=== PATIENT | female | born 1960 | race Caucasian/White ===

== ENCOUNTER 2016-08-21 20:33 | Observation (INO) | payer BC ==
--- NOTE | ~2016-08-21 | DS ---
Discharge Summary [facility] [address] [place]. [address] NAME: MING MA : 62 STATUS : DIS Papo PAT#: [id number] AGE: 55 ADM/REG DATE : 08/21/16 MR#: [id number] REPORT SERV DATE: 08/24/16 DICTATED BY: ENEIDA REAVES DATE: 08/23/16 REPORT STATUS : Draft TRANSCRIBED BY: DANDY DATE: 08/23/16 ADMISSION DATE: 08/21/2016 DISCHARGE DATE: 08/23/2016 DISCHARGE DIAGNOSES: 1. Chest pain, resolved. 2. Anxiety disorder. 3. Acute bronchitis. 4. Major depression. 5. Hyperlipidemia. 6. Cervical spine degenerative joint disease. 7. Tobacco abuse. DISCHARGE CONDITION: Stable. INVASIVE PROCEDURE: None. SIGNIFICANT IMAGING: Stress test, impression: 1. Alden's stage III, achieved 85% MPHR at 10 METS. 2. No angina or chest pain. 3. No EKG changes of ischemia. 4. Imaging demonstrated no ischemia as below. Post exercise left ventricular ejection fraction greater than 60%. Overall, low risk stress test. HISTORY OF PRESENT ILLNESS: For detailed HPI, please make reference to Dr. Jose Roberto Yu's dictation on 08/22/2016. In brief, this is a 55-year-old female with medical history significant for hypertension, tobacco abuse, anxiety disorder, major depression, who was transferred from [facility] Emergency Department to [facility] with complaints of chest pain and anxiety disorder. The patient endorsed history of intermittent chest pain of two days' duration, chest pain started initially on exertion, but continued to progress and also occurred at rest. There was no associated palpitation, presyncope or syncopal episodes, diaphoresis, or dyspnea. Of note, the patient reported that the episode of chest pain was precipitated by significant emotional stress due to multiple family problems. The patient believes that the chest pain was precipitated by a panic attack episode and worsening of anxiety disorder. She reported her continued to have significant alcohol abuse and severe major depression and her son also was abusing drugs. Due to this emotional stress of handling the psychiatry problem of and her son, she continued to have worsening anxiety attacks and chest pain. At [facility], she had troponin that was less than 0.02 x2. EKG that was negative for acute ST changes. The patient was transferred to [facility] for further evaluation of chest pain. HOSPITAL COURSE: 1. Chest pain. The patient received nitroglycerin x2 without any significant improvement. Received morphine x1 with resolution of chest pain. The patient subsequently underwent a stress test and final impression was low risk for ischemic cardiac disease. At the time of discharge, the patient had no further episode of chest pain. No shortness of Discharge Summary [place] [id number] [facility] [place]. [address] NAME: MING MA : 62 STATUS : DIS Papo PAT#: [id number] AGE: 55 ADM/REG DATE : 08/21/16 MR#: [id number] REPORT SERV DATE: 08/24/16 DICTATED BY: ENEIDA REAVES DATE: 08/23/16 REPORT STATUS : Draft TRANSCRIBED BY: DANDY DATE: 08/23/16 breath. The patient was advised to follow up with primary care physician as an outpatient. 2. Anxiety disorder. Precipitated by emotional stress at home. Although the patient reports that her has significant alcohol problem and few alcohol disorder and major depression. The patient reports that at the time of discharge, that she will not go back home with her , rather she will go and stay with dad. The patient also declined psychiatry evaluation during the course of this admission. She denied suicidal or homicidal ideation during this admission. The patient decided that she would rather follow up with primary psychiatrist as an outpatient. Prior to discharge, an appointment was made with her primary psychiatrist for patient to follow. 3. Tobacco abuse. The patient was counseled on tobacco cessation, was placed on nicotine patch during this course of admission. The patient agreed to abstain from tobacco use. The patient will be discharged home with nicotine patch. 4. Acute bronchitis. The patient was on Medrol Marcellus and Keflex prior to presentation. During the course of this admission, chest x-ray shows no evidence of pneumonia. The patient was prescribed Tessalon Perles with significant improvement. The patient did not receive any further dose of steroids during this admission. The patient was advised to continue follow up with her primary care physician. DISCHARGE MEDICATIONS: 1. Aspirin 81 mg p.o. daily. 2. Tessalon Perles 200 mg p.o. t.i.d. 3. Nicotine patch 21 mg p.o. daily. 4. Protonix 40 mg p.o. daily. 5. Propranolol 80 mg p.o. daily. 6. Clonazepam 2 mg p.o. b.i.d. 7. Trazodone 200 mg p.o. at bedtime. 8. Effexor XR 150 mg p.o. daily. DISCHARGE CONDITION: Stable. DISCHARGE DISPOSITION: Home. Greater than 30 minutes was used to prepare this patient's discharge. Advised the patient on discharge plans and followup. FOLLOWUP PLANS: 1. Follow up with primary psychiatrist within one week of discharge. 2. Follow up with primary care physician within one week of discharge. DISCHARGE ACTIVITY: As tolerated. DICTATED BY: Eneida Reaves MD IOO/DANDY Discharge Summary [address] [address] NAME: MNIG MA : 62 STATUS : DIS Papo PAT#: [id number] AGE: 55 ADM/REG DATE : 08/21/16 MR#: [id number] REPORT SERV DATE: 08/24/16 DICTATED BY: ENEIDA REAVES DATE: 08/23/16 REPORT STATUS : Draft TRANSCRIBED BY: DANDY DATE: 08/23/16 Eneida Reaves MD / [id number] CC: MD Alonzo Boateng M.D.
--- NOTE | ~2016-08-21 | HP ---
History And Physical [place] [id number] [facility] [place]. [address] NAME: MILA KOCH : 62 STATUS : ADM Papo PAT#: [id number] AGE: 55 ADM/REG DATE : 08/21/16 MR#: [id number] REPORT SERV DATE: 08/22/16 DICTATED BY: DATE: REPORT STATUS : Draft TRANSCRIBED BY: MODL DATE: 08/21/16 DATE OF ADMISSION: 08/21/2016 CHIEF COMPLAINT: Chest pain, anxiety. HISTORY OF PRESENT ILLNESS: Ms. Mila Koch is a 55-year-old white female with minimal past medical history, but several cardiovascular risk factors, who transferred from [facility] Emergency Department with chief complaint of chest pain earlier today with some associated shortness of breath and palpitations. She states that she has been experiencing intermittent chest pain off and on for two days with exertion and at rest. The chest pain was initially precipitated by emotional stress due to multiple family problems to be outlined below. She believes that her symptoms are likely related to a panic attack, but does have several cardiovascular risk factors and initially reported a family history of early coronary artery disease in her father at the age of 55 (since then has reported it was not until he was in his 70s). Troponin was negative and EKG at the outside facility showed an incomplete right bundle- branch block, which has been present since at least 2012 by review of our records. She received morphine, aspirin, and nitroglycerin prior to transfer and is currently chest pain free. She is primarily preoccupied with her stressful family situation and difficulties coping with her anxiety, and is seeking inpatient psychiatric hospitalization at [place] after "medical clearance." The patient is in a strained marriage with her of 36 years, who abuses alcohol. They temporarily one month ago, but had subsequently got back together, although it is a difficult situation still for the patient. She has two sons, who both struggle with addiction issues. Her father has been ill recently, and she is raising a 7-year-old granddaughter. She states "the weight of the world is on me and I just can't handle it." She sees Pillo Kim, nurse practitioner, at [facility], but has not called their office recently to discuss, and has not had any recent changes in her maintenance medications of Effexor and Klonopin. She denies any physical abuse, although does state that the home can be verbally abusive. She denies any suicidal ideation or homicidal ideation. She has had increasing compulsive-type behaviors and irritability recently, and she has some symptoms of hyper alertness - believing that she may see things that are not there, hear things that others cannot hear, and has a sense of "spirits" around her influencing these negative circumstances in her life currently. Her has accused her of being "crazy." REVIEW OF SYSTEMS: On 14-point review of systems, the patient endorses recent 35-pound weight loss over the past year. She states that the stress has impacted her appetite. She also has frequent insomnia, decreased interest in things that used to make her happy, a sense of emptiness, decreased concentration, increased psychomotor agitation. and some patchy hair loss. She recently saw her primary care provider for a physical on 08/05/2016, and was diagnosed with History And Physical [address] [address] NAME: MILA KOCH : 62 STATUS : ADM Papo PAT#: [id number] AGE: 55 ADM/REG DATE : 08/21/16 MR#: [id number] REPORT SERV DATE: 08/22/16 DICTATED BY: DATE: REPORT STATUS : Draft TRANSCRIBED BY: DANDY DATE: 08/21/16 mild emphysema and atelectasis. She was placed on treatment for bronchitis and recently completed a 10-day course of Keflex and a Medrol Dosepak. She reports that she has some ongoing cough and shortness of breath since then with some chest tightness and wheezing, but no phlegm production. A full 14-point review of systems is otherwise negative except as dictated in the history of present illness. PAST MEDICAL HISTORY: Includes: 1. Hypertension. 2. Hyperlipidemia. 3. Anxiety. 4. Depression. 5. Cervical spine degenerative disk disease. PAST SURGICAL HISTORY: Includes surgical correction of cervical spondylosis in 2013 and a hysterectomy. ALLERGIES: FLOXIN CAUSES VOMITING, BUT THE PATIENT CAN SUCCESSFULLY TAKE OTHER FLUOROQUINOLONES. HOME MEDICATIONS: By patient's memory include propranolol, Effexor, estradiol, trazodone, Klonopin, Protonix, and Crestor. SOCIAL HISTORY: The patient is , and a strained marriage as above. She has three children with issues as above. She does smoke one and a half packs per day for at least 25 years. She denies use of any alcohol or illicit substances. FAMILY HISTORY: Pertinent for coronary artery disease in her father, diagnosed in his 70s. Also, metastatic melanoma and dementia in her mother, who is from melanoma. PHYSICAL EXAMINATION: VITAL SIGNS: Blood pressure 140/83, pulse 64, respirations 16, oxygen saturations 98% on room, and temperature is 98.2. GENERAL: This is a thin white female, in no acute distress. She is anxious appearing, sometimes tearful in describing her family situation. HEENT: Normocephalic, atraumatic. Pupils are equally round and reactive to light. No alopecia. No sinus tenderness to palpation or nasal drainage. Oropharynx moist and pink with no posterior pharyngeal erythema or exudate. NECK: Supple. No jugular venous distention. No lymphadenopathy. No bruits. CARDIOVASCULAR: Regular rate and rhythm with no murmurs, rubs, or gallops. LUNGS: Faint end-expiratory wheezing, but no rhonchi or crackles. Good air entry to the bases. ABDOMEN: Soft, nontender, and nondistended with normoactive bowel sounds in four quadrants and no hepatosplenomegaly. EXTREMITIES: No cyanosis, clubbing, or edema. SKIN: Normal skin turgor with no rash or skin breakdown. NEUROLOGIC: Cranial nerves 2 through 12 were tested and are intact. Deep tendon reflexes 2+ bilateral brachioradialis and patellar tendons. Sensation intact to fine touch and History And Physical [address] [address] NAME: MILA KOCH : 62 STATUS : ADM Papo PAT#: [id number] AGE: 55 ADM/REG DATE : 08/21/16 MR#: [id number] REPORT SERV DATE: 08/22/16 DICTATED BY: DATE: REPORT STATUS : Draft TRANSCRIBED BY: MODL DATE: 08/21/16 temperature in all four limbs and strength is 5/5 bilateral upper and lower extremities. Patient ambulates without difficulty. LABORATORY DATA: Outside emergency department labs were reviewed, pertinent for creatinine 0.7, glucose 111, calcium 9.1, magnesium 1.9. Troponin less than 0.02. INR 1.1. White blood cell count 14.2, hemoglobin 14.1, hematocrit 42, platelets 381. Urine drug screen is negative. Salicylate level negative. Alcohol level negative. Urinalysis negative for infection. IMAGING: A portable chest x-ray done at the outside facility shows hyper aerated lungs with peribronchial thickening suggesting reactive airways disease. EKG shows incomplete right bundle-branch block, compared to EKG in the system from 2013 here showing RSR prime variant. Labs in our system were reviewed as well with a normal TSH on 08/05/2016, total cholesterol 165 with HDL 54, LDL 94, and triglycerides 88. IMPRESSION: 1. Atypical chest pain - suspect due to anxiety, with cardiovascular risk factors, we will rule out cardiac etiologies. 2. Leukocytosis - suspect steroid induced given recent Medrol Dosepak. 3. History of incomplete right bundle-branch block. 4. History of hypertension. 5. History of hyperlipidemia. 6. History of tobacco abuse. 7. Mild emphysema. 8. Depression and anxiety with recently increased psychological stress, and possible hyperarousal versus psychotic features. PLAN: 1. Observation admission to [address] [place] [address], [address] Eneida Adamson. 2. Serial cardiac enzymes and EKGs with a stress test if troponin is negative x2. 3. P.r.n. morphine, p.r.n. oxygen, p.r.n. nitrates, aspirin, continuation of home beta- schuyler. 4. Repeat CBC in the morning - no present indication for antibiotics given clinical exam findings and lack of infiltrate on chest x-ray as well as no significant change in sputum. Suspect that the cough is more related to chronic smoker's cough than acute infection, and we will attempt to optimize the patient's breathing treatments with use of an inhaled steroids, long-acting beta agonist, and we will add Spiriva as well. 5. Continue home psychiatric medications and utilize p.r.n. Ativan. 6. Check B12, sedimentation rate, ammonia, [place], and a CT of the brain regarding possible visual hallucinations, but again, think this may be related to her uncontrolled anxiety. 7. Pending results of above workup, consider voluntary inpatient psychiatric hospitalization at [facility] after discussing with her psychiatric nurse practitioner when the office is open on Tuesday. History And Physical [address] [place]. [address] NAME: MILA KOCH : 62 STATUS : ADM Papo PAT#: [id number] AGE: 55 ADM/REG DATE : 08/21/16 MR#: [id number] REPORT SERV DATE: 08/22/16 DICTATED BY: DATE: REPORT STATUS : Draft TRANSCRIBED BY: DANDY DATE: 08/21/16 EPI/DANDY Jose Roberto Yu M.D. / [id number] CC: Eneida Adamson MD
[~2016-08-21 20:33] MED LIST: CRESTOR10 PO; EFFEX75 PO; ESTRATEST PO; INDE80 PO; KLONO2 PO; MAX25 PO; NORCO1 TAB PO; TRAZ100 PO; ZANAFLEX 4 MG TA4 MG PO
[2016-08-21] MEDS ORDERED: TRAZ100 PO (22:01)
[2016-08-21] MEDS ORDERED: EFFEXOR XR150 MG PO (22:01)
[2016-08-21] MEDS ORDERED: KLONO2 PO (22:02)
[2016-08-21] MEDS ORDERED: ZOCOR40 PO (22:02)
[2016-08-21] MEDS ORDERED: FLORASTOR250 MG PO (22:02)
[2016-08-21] MEDS ORDERED: PROTONIX PO (22:02)
[2016-08-21] MEDS ORDERED: K500 PO (22:02)
[2016-08-21] MEDS ORDERED: ANOROELLIPTA INH (22:03)
[2016-08-21] MEDS ORDERED: HARD NAILS PO (22:03)
[2016-08-21] MEDS ORDERED: INDE80 PO (22:03)
[2016-08-21 23:24] LABS: TROPONIN I <0.02 NG/ML (<0.05)
[2016-08-22 07:01] LABS: BASOPHILS 0.5 %; BASOPHILS ABSOLUTE 0.05 10/3/uL (0.0-0.16); EOSINOPHILS 1.9 %; EOSINOPHILS ABSOLUTE 0.21 10/3/uL (0.0-0.53); HEMATOCRIT 39.4 % (36.0-48.0); HEMOGLOBIN 13.1 g/dL (12.0-16.0); IMMATURE GRANULOCYTES 0.9 %; LYMPHOCYTES 30.6 %; LYMPHOCYTES ABSOLUTE 3.33 10/3/uL (0.67-4.30); MEAN CORPUS HGB CONC 33.2 g/dL (32.0-36.0); MEAN CORPUSCULAR HEMOGLOB 30.7 pg (26.0-34.0); MEAN CORPUSCULAR VOLUME 92.3 fL (80-100); MEAN PLATELET VOLUME 8.9 fL (9.2-13.0); MONOCYTES 10.3 %; MONOCYTES ABSOLUTE 1.12 10/3/uL (0.21-1.20); NEUTROPHILS 55.8 %; NEUTROPHILS ABSOLUTE 6.06 10/3/uL (2.02-8.40); PLATELET COUNT 298 10/3/uL (150-400); RBC DISTRIBUTION WIDTH 13.5 % (12.0-16.0); RED CELL COUNT 4.27 10/6/uL (4.0-5.6)
[2016-08-22 07:05] LABS: MANUAL DIFF NO %; WHITE BLOOD CELLS 10.9 10/3/uL (4.5-10.5)
[2016-08-22 07:16] LABS: BUN (BLOOD UREA NITROGEN) 11 MG/DL (6-23); CALCIUM, SERUM 8.4 MG/DL (8.5-10.4); CHLORIDE, SERUM 109 MMOL/L (96-112); CO2 (CARBON DIOXIDE) 25 MMOL/L (24-34); CREATININE 0.58 MG/DL (0.55-1.02); GFR AFRICAN AMERICAN 121 ML/MIN (>=60); GFR NON AFRICAN AMERICAN 104 ML/MIN (>=60); GLUCOSE, SERUM 79 MG/DL (60-99); POTASSIUM, SERUM 3.6 MMOL/L (3.5-5.3); SODIUM, SERUM 144 MMOL/L (135-148); TROPONIN I <0.02 NG/ML (<0.05)
[2016-08-23 03:58] LABS: BASOPHILS 0.4 %; BASOPHILS ABSOLUTE 0.04 10/3/uL (0.0-0.16); EOSINOPHILS 2.3 %; EOSINOPHILS ABSOLUTE 0.21 10/3/uL (0.0-0.53); HEMATOCRIT 36.8 % (36.0-48.0); HEMOGLOBIN 12.2 g/dL (12.0-16.0); IMMATURE GRANULOCYTES 1.1 %; LYMPHOCYTES 35.7 %; LYMPHOCYTES ABSOLUTE 3.26 10/3/uL (0.67-4.30); MEAN CORPUS HGB CONC 33.2 g/dL (32.0-36.0); MEAN CORPUSCULAR HEMOGLOB 30.7 pg (26.0-34.0); MEAN CORPUSCULAR VOLUME 92.7 fL (80-100); MONOCYTES 9.4 %; MONOCYTES ABSOLUTE 0.86 10/3/uL (0.21-1.20); NEUTROPHILS 51.1 %; NEUTROPHILS ABSOLUTE 4.65 10/3/uL (2.02-8.40); PLATELET COUNT 262 10/3/uL (150-400); RBC DISTRIBUTION WIDTH 13.5 % (12.0-16.0); RED CELL COUNT 3.97 10/6/uL (4.0-5.6); WHITE BLOOD CELLS 9.1 10/3/uL (4.5-10.5)
[2016-08-23 04:01] LABS: MANUAL DIFF NO %
[2016-08-23 04:16] LABS: BUN (BLOOD UREA NITROGEN) 11 MG/DL (6-23); CALCIUM, SERUM 8.1 MG/DL (8.5-10.4); CHLORIDE, SERUM 113 MMOL/L (96-112); CO2 (CARBON DIOXIDE) 26 MMOL/L (24-34); GFR AFRICAN AMERICAN 127 ML/MIN (>=60); GFR NON AFRICAN AMERICAN 110 ML/MIN (>=60); GLUCOSE, SERUM 85 MG/DL (60-99); PHOSPHORUS, SERUM 3.3 MG/DL (2.5-4.5); POTASSIUM, SERUM 3.6 MMOL/L (3.5-5.3); SODIUM, SERUM 144 MMOL/L (135-148)
[2016-08-23 09:52] LABS: ANA TITER <1:40 TITER
[2016-08-23] MEDS ORDERED: TESSALON200 MG PO (13:59)
[2016-08-23] MEDS ORDERED: HABIT21 (14:00)
== END 2016-08-23 16:10 | disposition home or self-care (01) ==
LOC: 7NO 20:33
PROVIDERS: Hospitalist
DX: R07.89 Other chest pain (principal); J20.9 Acute bronchitis, unspecified; F41.9 Anxiety disorder, unspecified; F32.9 Major depressive disorder, single episode, unspecified; E78.5 Hyperlipidemia, unspecified; M47.9 Spondylosis, unspecified; I45.10 Unspecified right bundle-branch block; Z82.49 Family history of ischemic heart disease and other diseases of the circulatory system; Z90.710 Acquired absence of both cervix and uterus; Z88.1 Allergy status to other antibiotic agents; Z79.2 Long term (current) use of antibiotics; Z79.899 Other long term (current) drug therapy; Z98.890 Other specified postprocedural states
CPT/HCPCS: 70450; 71010; 78452; 80048; 82140; 82607; 83735; 84100; 84484; 85025; 86039; 93017; 94640; A9270-GY; A9502; G0378